=== PATIENT | male | born 1990 | race Caucasian/White ===

== ENCOUNTER 2016-09-13 14:37 | Emergency (ER) | payer OTHER ==
[2016-09-13 15:53] LABS: HEMOGLOBIN 13.6 gm/dl (14.0-17.5); RED BLOOD COUNT 5.15 M/UL (4.20-5.50); WHITE BLOOD COUNT 8.6 K/UL (4.5-11.0)
[2016-09-13 16:21] LABS: BUN/CREATININE RATIO 11 (0-10)
== END 2016-09-13 18:50 | disposition home or self-care (01) ==
LOC: ER1 14:37
PROVIDERS: Physician Assistant Medical
DX: L03.116 Cellulitis of left lower limb (principal); I80.9 Phlebitis and thrombophlebitis of unspecified site; F19.10 Other psychoactive substance abuse, uncomplicated; F17.210 Nicotine dependence, cigarettes, uncomplicated; F32.9 Major depressive disorder, single episode, unspecified; F41.9 Anxiety disorder, unspecified; Z88.1 Allergy status to other antibiotic agents
CPT/HCPCS: 36415; 80048; 85025; 85379; 85610; 85730; 93971; 99283